=== PATIENT | male | born 1935 | race Caucasian/White ===

== ENCOUNTER 2018-01-05 13:00 | Observation (INO) ==
[2018-01-05] MEDS ORDERED: 0.9 % Sodium Chloride 1,000 ML IVC ONE (13:06)
--- NOTE | 2018-01-05 13:11 | Emergency Department Note ---
Disposition Clinical Impression: Altered mental status Qualifiers: Altered mental status type: unspecified Qualified Code(s): R41.82 - Altered mental status, unspecified UTI (urinary tract infection) Qualifiers: Urinary tract infection type: site unspecified Hematuria presence: without hematuria Qualified Code(s): N39.0 - Urinary tract infection, site not specified Disposition: Admitted As Inpatient Condition: Fair Referrals: NONE,PCP [Primary Care Provider] - Forms: ED Satisfaction Letter Time of Disposition: 15:49 Altered Mental Status HPI - General Chief Complaint: ED Upper Respiratory Infection Stated Complaint: cough, flu-like symptoms Time Seen by Provider: 01/05/18 13:02 Source: EMS Mode of arrival: EMS Limitations: altered mental status Nursing Notes Reviewed: Yes Vital Signs Reviewed: Yes - History of Present Illness HPI Narrative: Patient is a 82-year-old male with past medical history of dementia, previous stroke, previous pneumonia, decreased ambulation status, decreased speech. He presents today via EMS from [facility] due to altered mental status , cough, fever, concern for flu. EMS states that the patient's roommate recently had the flu. The patient himself has had a productive cough. Family states that he is usually alert and does try to talk but cannot carry on any meaningful conversation. However, this morning, he was not able to be easily aroused, is not speaking at all. prison also states that he is not making any effort to move. The patient himself on arrival is not answering any questions, we will not perform any commands. He is withdrawing to pain, is resisting when I try to open his eyes. He also does have rhonchorous cough throughout the exam. Patient's family is at bedside and states that he is DNR CCA. - Related Data Home Medications Medication Instructions Recorded Confirmed Atorvastatin Calcium [Lipitor] 80 mg PO HS 11/22/15 01/05/18 Isosorbide DInitrate [Isosorbide 20 mg PO TID 11/22/15 01/05/18 Dinitrate] Carvedilol [Coreg] 6.25 mg PO BID 11/29/15 01/05/18 Docusate [Colace] 100 mg PO BID 01/05/18 01/05/18 Ketoconazole Shampoo [Nizoral 1 appl TP MOTHSA 01/05/18 01/05/18 Shampoo] LevETIRAcetam [Keppra] 500 mg PO BID 01/05/18 01/05/18 Potassium Chloride [K-Tab ER] 20 meq PO DAILY 01/05/18 01/05/18 Sennosides [Senna] 8.6 mg PO BID 01/05/18 01/05/18 Triamcinolone Acetonide 1 appl TP BID 01/05/18 01/05/18 Allergies Allergy/AdvReac Type Severity Reaction Status Date / Time No Known Allergies Allergy Verified 11/07/15 15:30 All systems ED: reviewed and negative except as stated. Limitations: ROS unobtainable due to patients medical condition Constitutional: Reports: fever Respiratory: Reports: cough Neurological: Reports: other (AMS) Past Medical History - Past Medical History Attestation: Yes The following information was validated with the patient. Source: patient Medical history: Reports: atrial fibrillation, CVA, DVT, other Surgical history: Reports: coronary bypass (CABG) Psychiatric history: Reports: no psych history - Social History Smoking Status: Former smoker Smokeless Tobacco Status: No Alcohol use: Reports: unknown Drug use: Reports: none Physical Exam Physical exam shows the patient is lying on his back, eyes closed, mouth open, will not open his eyes but resists when I try to open them, will perform any commands. Otherwise, lungs are rhonchorous bilaterally lower lobes, abdomen soft and appears to be nontender. He does have pitting edema of the bilateral lower extremities but no signs of cellulitis. - General Limitations: altered mental status General appearance: lethargic - Head Head exam: atraumatic, normocephalic, normal inspection - Eye Eye exam: Present: normal appearance, PERRL, EOMI. Absent: miosis, mydriasis - ENT ENT exam: normal exam, normal oropharynx, mucous membranes moist - Neck Neck exam: Present: normal inspection, trachea midline - Chest Chest inspection: Present: normal inspection, symmetric chest wall rise - Respiratory Respiratory exam: Present: other (rhonchi bilateral LL) - Cardiovascular Cardiovascular exam: Present: regular rate, normal rhythm, normal heart sounds - Abdominal Exam Abdominal exam: Present: soft, Non-Tender. Absent: tenderness, distention, guarding, rebound, rigidity - Extremities Exam Extremities exam: Present: normal inspection, full ROM, pedal edema (pitting edema of bilateral LL) - Neurological Exam Neurological exam: Present: other (lying on bed, will not answer questions or follow commands; resists opening eyes.) - Psychiatric Psychiatric exam: Present: other - Skin Skin exam: Present: warm, dry, intact, normal color. Absent: rash Course Course Narrative: Vitals are all currently within normal limits. Patient is on 2 L nasal cannula oxygen. Family stated to us that the patient is not usually on oxygen and that this must have been started within the past 1-2 days. Physical exam shows the patient is lying on his back, eyes closed, mouth open, will not open his eyes but resists when I try to open them, will perform any commands. Otherwise, lungs are rhonchorous bilaterally lower lobes, abdomen soft and appears to be nontender. He does have pitting edema of the bilateral lower extremities but no signs of cellulitis. Will perform altered mental status including CT of the head, EKG, chest x-ray, basic blood work, troponin, urinalysis. Concern for pneumonia versus flu. 15:44 flu negative. Labs show UTI. CT of the head shows no acute abnormalities. There is evidence of an old infarct the family is aware of. Chest x-ray negative for any acute cardiopulmonary process. Creatinine within normal limits. No major electrolyte abnormalities. We will admit the patient for altered mental status and UTI. Vital Signs Temperature 98.3 F 01/05/18 13:04 Pulse Rate 57 01/05/18 13:04 Respiratory Rate 17 01/05/18 13:04 Blood Pressure 116/62 01/05/18 13:04 O2 Sat by Pulse Oximetry 100 01/05/18 13:04 Temperature 98.3 F 01/05/18 13:04 Pulse Rate 57 01/05/18 13:04 Respiratory Rate 17 01/05/18 13:04 Blood Pressure 116/62 01/05/18 13:04 O2 Sat by Pulse Oximetry 100 01/05/18 13:04 Oxygen Delivery Oxygen Delivery Room Air Altered Mental Status - MDM Narrative Medical decision making narrative: Vitals are all currently within normal limits. Patient is on 2 L nasal cannula oxygen. Family stated to us that the patient is not usually on oxygen and that this must have been started within the past 1-2 days. Physical exam shows the patient is lying on his back, eyes closed, mouth open, will not open his eyes but resists when I try to open them, will perform any commands. Otherwise, lungs are rhonchorous bilaterally lower lobes, abdomen soft and appears to be nontender. He does have pitting edema of the bilateral lower extremities but no signs of cellulitis. Will perform altered mental status including CT of the head, EKG, chest x-ray, basic blood work, troponin, urinalysis. Concern for pneumonia versus flu. 15:44 flu negative. Labs show UTI. CT of the head shows no acute abnormalities. There is evidence of an old infarct the family is aware of. Chest x-ray negative for any acute cardiopulmonary process. Creatinine within normal limits. No major electrolyte abnormalities. We will admit the patient for altered mental status and UTI. PATIENT IS DNRCCA - Medical Records Medical records reviewed: Yes I reviewed the patient's medical records. - Lab Data Lab results reviewed: Yes I reviewed the patient's lab results. Result diagrams: 01/05/18 13:32 01/05/18 13:32 Lab Results 01/05/18 01/05/18 01/05/18 Range/Units 13:32 13:32 13:32 WBC 7.0 (4.3-11.1) K/mcL RBC 4.30 (4.19-5.50) M/mcL Hgb 11.3 L (12.9-16.9) g/dL Hct 37.2 L (37.5-50.1) % MCV 86.5 (83.0-100.0) fL MCH 26.3 L (28.0-33.3) pg MCHC 30.4 L (31.6-35.5) g/dL RDW 14.6 H (11.5-14.5) % Plt Count 157 (140-400) K/mcL MPV 10.5 (9.4-12.4) fL Immature Gran % 0.3 (0-4) % Seg Neutrophils % 59.1 % Lymphocytes % 19.7 % Monocytes % 16.5 % Eosinophils % 4.0 % Basophils % 0.4 % Neutrophils # 4.1 (1.6-8.9) K/mcL Lymphocytes # 1.4 (0.6-4.6) K/mcL Monocytes # 1.2 (0.0-1.3) K/mcL Eosinophils # 0.3 (0.0-0.6) K/mcL Basophils # 0.0 (0.0-0.2) K/mcL PT 12.3 H (9.4-12.1) Seconds INR 1.1 APTT 29.6 (26.0-36.0) Seconds Sodium 138 (136-145) mEq/L Potassium 4.6 (3.5-5.1) mEq/L Chloride 104 (98-107) mEq/L Carbon Dioxide 30 H (23-29) mEq/L BUN 25 H (8-23) mg/dL Creatinine 1.30 (0.70-1.30) mg/dL Est GFR ( Amer) > 60 (> 60) Est GFR (Non-Af Amer) 53 L (> 60) BUN/Creatinine Ratio 19 (6-26) Glucose 93 (70-105) mg/dL Calculated Osmolality 290 (280-300) Calcium 8.5 L (8.6-10.3) mg/dL Total Bilirubin 0.5 (0.3-1.0) mg/dL Direct Bilirubin 0.1 (0.0-0.2) mg/dL Indirect Bilirubin 0.4 (0.0-1.2) mg/dL AST 21 (13-39) Units/L ALT 19 (7-52) Units/L Alkaline Phosphatase 103 (34-104) Units/L Troponin I (< 0.04) ng/mL Serum Total Protein 6.7 (6.4-8.9) g/dL Albumin 3.4 L (3.5-5.7) g/dL Globulin 3.3 (2.4-3.5) g/dL Albumin/Globulin Ratio 1.0 L (1.1-2.2) TSH 3.150 (0.340-5.600) mcIU/mL Urine Color (Yellow) Urine Clarity (Clear) Urine pH (5.0-8.0) pH Units Ur Specific Parker (1.010-1.025) Urine Protein (Neg-Trace) mg/dL Urine Glucose (UA) (Normal) mg/dL Urine Ketones (Negative) mg/dL Urine Blood (Negative) Urine Nitrite (Negative) Urine Bilirubin (Negative) Urine Urobilinogen (Normal) mg/dL Ur Leukocyte Esterase (Negative) Urine Microscopic RBC (0-3) per hpf Urine Microscopic WBC (0-3) per hpf Ur Squamous Epith Cells (None-Few) per lpf Urine Bacteria (None-Few) per hpf Hyaline Casts (None-Few) per lpf Ur Culture Indicated? (NO) Salicylates (15.0-30.0) mg/dL Acetaminophen (10-30) mcg/mL Specimen Rejected 01/05/18 01/05/18 01/05/18 Range/Units 13:32 13:32 13:32 WBC (4.3-11.1) K/mcL RBC (4.19-5.50) M/mcL Hgb (12.9-16.9) g/dL Hct (37.5-50.1) % MCV (83.0-100.0) fL MCH (28.0-33.3) pg MCHC (31.6-35.5) g/dL RDW (11.5-14.5) % Plt Count (140-400) K/mcL MPV (9.4-12.4) fL Immature Gran % (0-4) % Seg Neutrophils % % Lymphocytes % % Monocytes % % Eosinophils % % Basophils % % Neutrophils # (1.6-8.9) K/mcL Lymphocytes # (0.6-4.6) K/mcL Monocytes # (0.0-1.3) K/mcL Eosinophils # (0.0-0.6) K/mcL Basophils # (0.0-0.2) K/mcL PT (9.4-12.1) Seconds INR APTT (26.0-36.0) Seconds Sodium (136-145) mEq/L Potassium (3.5-5.1) mEq/L Chloride (98-107) mEq/L Carbon Dioxide (23-29) mEq/L BUN (8-23) mg/dL Creatinine (0.70-1.30) mg/dL Est GFR ( Amer) (> 60) Est GFR (Non-Af Amer) (> 60) BUN/Creatinine Ratio (6-26) Glucose (70-105) mg/dL Calculated Osmolality (280-300) Calcium (8.6-10.3) mg/dL Total Bilirubin (0.3-1.0) mg/dL Direct Bilirubin (0.0-0.2) mg/dL Indirect Bilirubin (0.0-1.2) mg/dL AST (13-39) Units/L ALT (7-52) Units/L Alkaline Phosphatase (34-104) Units/L Troponin I < 0.03 (< 0.04) ng/mL Serum Total Protein (6.4-8.9) g/dL Albumin (3.5-5.7) g/dL Globulin (2.4-3.5) g/dL Albumin/Globulin Ratio (1.1-2.2) TSH (0.340-5.600) mcIU/mL Urine Color (Yellow) Urine Clarity (Clear) Urine pH (5.0-8.0) pH Units Ur Specific Parker (1.010-1.025) Urine Protein (Neg-Trace) mg/dL Urine Glucose (UA) (Normal) mg/dL Urine Ketones (Negative) mg/dL Urine Blood (Negative) Urine Nitrite (Negative) Urine Bilirubin (Negative) Urine Urobilinogen (Normal) mg/dL Ur Leukocyte Esterase (Negative) Urine Microscopic RBC (0-3) per hpf Urine Microscopic WBC (0-3) per hpf Ur Squamous Epith Cells (None-Few) per lpf Urine Bacteria (None-Few) per hpf Hyaline Casts (None-Few) per lpf Ur Culture Indicated? (NO) Salicylates < 5.0 L (15.0-30.0) mg/dL Acetaminophen 1.0 L (10-30) mcg/mL Specimen Rejected Hemolyzed 01/05/18 Range/Units 14:37 WBC (4.3-11.1) K/mcL RBC (4.19-5.50) M/mcL Hgb (12.9-16.9) g/dL Hct (37.5-50.1) % MCV (83.0-100.0) fL MCH (28.0-33.3) pg MCHC (31.6-35.5) g/dL RDW (11.5-14.5) % Plt Count (140-400) K/mcL MPV (9.4-12.4) fL Immature Gran % (0-4) % Seg Neutrophils % % Lymphocytes % % Monocytes % % Eosinophils % % Basophils % % Neutrophils # (1.6-8.9) K/mcL Lymphocytes # (0.6-4.6) K/mcL Monocytes # (0.0-1.3) K/mcL Eosinophils # (0.0-0.6) K/mcL Basophils # (0.0-0.2) K/mcL PT (9.4-12.1) Seconds INR APTT (26.0-36.0) Seconds Sodium (136-145) mEq/L Potassium (3.5-5.1) mEq/L Chloride (98-107) mEq/L Carbon Dioxide (23-29) mEq/L BUN (8-23) mg/dL Creatinine (0.70-1.30) mg/dL Est GFR ( Amer) (> 60) Est GFR (Non-Af Amer) (> 60) BUN/Creatinine Ratio (6-26) Glucose (70-105) mg/dL Calculated Osmolality (280-300) Calcium (8.6-10.3) mg/dL Total Bilirubin (0.3-1.0) mg/dL Direct Bilirubin (0.0-0.2) mg/dL Indirect Bilirubin (0.0-1.2) mg/dL AST (13-39) Units/L ALT (7-52) Units/L Alkaline Phosphatase (34-104) Units/L Troponin I (< 0.04) ng/mL Serum Total Protein (6.4-8.9) g/dL Albumin (3.5-5.7) g/dL Globulin (2.4-3.5) g/dL Albumin/Globulin Ratio (1.1-2.2) TSH (0.340-5.600) mcIU/mL Urine Color Yellow (Yellow) Urine Clarity Cloudy A (Clear) Urine pH 6.0 (5.0-8.0) pH Units Ur Specific Parker 1.023 (1.010-1.025) Urine Protein 30 H (Neg-Trace) mg/dL Urine Glucose (UA) Normal (Normal) mg/dL Urine Ketones Negative (Negative) mg/dL Urine Blood Small H (Negative) Urine Nitrite Positive A (Negative) Urine Bilirubin Negative (Negative) Urine Urobilinogen Normal (Normal) mg/dL Ur Leukocyte Esterase Large H (Negative) Urine Microscopic RBC 0-3 (0-3) per hpf Urine Microscopic WBC TNTC H (0-3) per hpf Ur Squamous Epith Cells Few (None-Few) per lpf Urine Bacteria Many H (None-Few) per hpf Hyaline Casts Few (None-Few) per lpf Ur Culture Indicated? YES A (NO) Salicylates (15.0-30.0) mg/dL Acetaminophen (10-30) mcg/mL Specimen Rejected - Radiology Data Radiology results reviewed: Yes I reviewed the patient's radiology results. Chest X-Ray 01/05/18 13:04 IMPRESSION: Stable cardiomegaly. Low lung volumes. Atelectasis at the right lung base. Mild pulmonary vascular congestion. Trace bilateral pleural effusions. D/ / Qamar Posey MD / Qamar Posey MD Interpreting Provider: Qamar Posey MD Head CT 01/05/18 13:05 IMPRESSION: 1. Diffuse cerebral atrophy with chronic small vessel ischemic disease. 2. Low attenuation within the left frontal lobe. This may be related to prior infarct or trauma. However, a neoplastic process cannot totally be excluded. I would recommend MRI of the brain for further evaluation. D/ / Nigel Bean MD / Nigel Bean MD Interpreting Provider: Nigel Bean MD - EKG Data EKG attestation: Yes I reviewed and interpreted this EKG. EKG results narrative: 01/05/2018 at 13:58. Sinus bradycardia. Rate 56. SD to 10. QRS 148. No acute ST elevation or depression. Right bundle branch block evident. Normal axis. TPA Checklist - LKW: 3-4.5 hrs Add. Warnings/Precautions Patient/family understanding: The patient/family members have been counseled and understood the risk, benefit , and alternatives of treatment.
[2018-01-05 13:46] LABS: Basophils % 0.4 %; Eosinophils # 0.3 K/mcL (0.0-0.6); Hematocrit 37.2 % (37.5-50.1); Hemoglobin 11.3 g/dL (12.9-16.9); Immature Granulocytes % 0.3 % (0-4); Lymphocytes # 1.4 K/mcL (0.6-4.6); Lymphocytes % 19.7 %; Mean Corpuscular HGB Conc 30.4 g/dL (31.6-35.5); Mean Corpuscular Hemoglobin 26.3 pg (28.0-33.3); Mean Corpuscular Volume 86.5 fL (83.0-100.0); Mean Platelet Volume 10.5 fL (9.4-12.4); Monocytes # 1.2 K/mcL (0.0-1.3); Monocytes % 16.5 %; Neutrophils # 4.1 K/mcL (1.6-8.9); Platelet Count 157 K/mcL (140-400); Red Cell Distribution Width 14.6 % (11.5-14.5); Segmented Neutrophils % 59.1 %
[2018-01-05 13:51] LABS: INR 1.1; Prothrombin Time 12.3 Seconds (9.4-12.1)
[2018-01-05 13:54] LABS: Activated Partial Thrombo Time 29.6 Seconds (26.0-36.0)
[2018-01-05 14:05] LABS: Salicylate < 5.0 mg/dL (15.0-30.0)
[2018-01-05 14:30] LABS: Alanine Aminotransferase 19 Units/L (7-52); Albumin 3.4 g/dL (3.5-5.7); Alkaline Phosphatase 103 Units/L (34-104); Aspartate Amino Transferase 21 Units/L (13-39); BUN/Creatinine Ratio 19 (6-26); Bilirubin,Direct 0.1 mg/dL (0.0-0.2); Bilirubin,Indirect 0.4 mg/dL (0.0-1.2); Bilirubin,Total 0.5 mg/dL (0.3-1.0); Blood Urea Nitrogen 25 mg/dL (8-23); Calcium 8.5 mg/dL (8.6-10.3); Carbon Dioxide 30 mEq/L (23-29); Chloride 104 mEq/L (98-107); Globulin 3.3 g/dL (2.4-3.5); Glucose 93 mg/dL (70-105); Osmolality,Calculated 290 (280-300); Potassium 4.6 mEq/L (3.5-5.1); Sodium 138 mEq/L (136-145); Total Protein 6.7 g/dL (6.4-8.9); eGFR For African Americans > 60 (> 60); eGFR For Non-African Americans 53 (> 60)
[2018-01-05 14:47] LABS: Bilirubin,Urine Negative (Negative); Blood,Urine Small (Negative); Clarity,Urine Cloudy (Clear); Color,Urine Yellow (Yellow); Glucose,Urine (UA) Normal (Normal); Ketones,Urine Negative (Negative); Leukocyte Esterase,Urine Large (Negative); Nitrite,Urine Positive (Negative); Protein,Urine 30 mg/dL (Neg-Trace); Specific Gravity,Urine 1.023 (1.010-1.025); Urobilinogen,Urine Normal (Normal)
[2018-01-05 14:49] LABS: RBC,Urine 0-3 per hpf (0-3); WBC,Urine TNTC per hpf (0-3)
--- NOTE | 2018-01-05 14:49 | Emergency Department Note ---
START Narrative - START START: I examined this patient and my medical decision-making was reviewed with the Resident Physician. I agree with the documented findings, disposition and treatment plan as described except to the extent set forth below. 82-year-old male presented to the ER for altered mental status. She was sent from a local jail. He is a DNR comfort care arrest. Patient was sent to the ER for being somnolent and possible flulike illness. Upon arrival in examination, the patient is very lethargic and does not follow many commands. He is coughing on his own. CT of the head does not show any acute findings. Chest x-ray is stable. Patient will need to be admitted for further workup of this decline in mental status. Unclear as the cause of the patient's altered mental status at this time. Patient does not seem to be changing much here in the ER. Still awaiting his urinalysis is this could be the cause of this. critical care time of 35 min spent in management of AMS and possible infectious etiology
[2018-01-05 14:59] LABS: Hyaline Casts,Urine Few per lpf (None-Few)
[2018-01-05 15:00] LABS: Bacteria,Urine Many per hpf (None-Few); Squamous Epithelial Cell,Urine Few per lpf (None-Few)
[2018-01-05] MEDS ORDERED: cefTRIAXone 2,000 MG in Water for inj. (sterile) 20 ML 20 ML IVP ONE (16:00)
--- NOTE | 2018-01-05 18:44 | Internal Med History&Physical ---
Date of Encounter: 01/05/18 Time of Encounter: 18:00 Assessment and Plan (1) UTI (urinary tract infection) Current visit: No Status: Acute -Will continue IV ceftriaxone started in the ER; cultures pending Qualifiers: Urinary tract infection type: acute cystitis Hematuria presence: without hematuria Qualified Code(s): N30.00 - Acute cystitis without hematuria (2) Altered mental status Current visit: Yes Status: Acute -Patient with underlining dementia but suspect secondary to above Qualifiers: Altered mental status type: unspecified Qualified Code(s): R41.82 - Altered mental status, unspecified (3) CAD (coronary artery disease) Current visit: No Status: Chronic -Continue home medications Qualifiers: Coronary Disease-Associated Artery/Lesion type: unspecified vessel or lesion type [place] vs. transplanted heart: [place] heart Associated angina: angina presence unspecified Qualified Code(s): I25.10 - Atherosclerotic heart disease of [place] coronary artery without angina pectoris (4) HTN (hypertension) Current visit: No Status: Chronic -Continue home medications Qualifiers: Hypertension type: essential hypertension Qualified Code(s): I10 - Essential (primary) hypertension (5) Dementia Current visit: Yes Status: Acute -Continue home medications Qualifiers: Qualified Code(s): F03.90 - Unspecified dementia without behavioral disturbance (6) DVT prophylaxis Current visit: Yes Status: Acute -SCDs Internal Medicine - H&P: HPI Chief complaint: Confusion Admitted From: Long-term Nursing Facility Plans for Post Hospital Care: Transfer Jail Care History of present illness: Patient is an 82-year-old male with past medical history significant for coronary arterial disease, hyperlipidemia and dementia who presents to the ER on 01/05/18 due to confusion. Family who is present at bedside reports that the patient has had decreased by mouth intake the last 2 weeks and now has become more confused. Apparently patient was being worked up for dysphagia and was to have a barium swallow per family. Patient was sent by [facility] to the ER for further evaluation. In the ER patient was found to have pyuria; no acute findings on CT of the head. Patient will be admitted to the medical surgical floor for acute cystitis with hematuria. Past Med Surg Social Fam HX - Past Medical History Medical history: atrial fibrillation, CVA, DVT, other Psychiatric history: no psych history - Past Surgical History Surgical History: coronary bypass (CABG) - Social History Smoking Status: Former smoker Smokeless Tobacco Status: No Alcohol use: unknown Drug use: none - Family History Mother Living Status: Internal Medicine - H&P: Meds Atorvastatin Calcium [Lipitor] 80 mg PO HS 11/22/15 [History] Isosorbide DInitrate [Isosorbide Dinitrate] 20 mg PO TID 11/22/15 [History] Carvedilol [Coreg] 6.25 mg PO BID 11/29/15 [History] Docusate [Colace] 100 mg PO BID 01/05/18 [History] Ketoconazole Shampoo [Nizoral Shampoo] 1 appl TP MOTHSA 01/05/18 [History] LevETIRAcetam [Keppra] 500 mg PO BID 01/05/18 [History] Potassium Chloride [K-Tab ER] 20 meq PO DAILY 01/05/18 [History] Sennosides [Senna] 8.6 mg PO BID 01/05/18 [History] Triamcinolone Acetonide 1 appl TP BID 01/05/18 [History] 3 Allergy/AdvReac Type Severity Reaction Status Date / Time No Known Allergies Allergy Verified 11/07/15 15:30 ROS unobtainable: due to mental status All Systems PM: A 10-system review of systems was performed and is negative for pertinent findings except as documented above in the HPI. - Constitutional Vitals: Temp Pulse Resp BP Pulse Ox 98.3 F 64 17 128/79 97 01/05/18 13:04 01/05/18 17:06 01/05/18 17:06 01/05/18 17:06 01/05/18 17:06 General appearance: Present: A&O X 2, pleasant, no acute distress - Respiratory Respiratory exam: Present: CTAB. Absent: accessory muscle use, rales, rhonchi, wheezes - Cardiovascular Cardiovascular exam: Present: RRR, +S1, +S2. Absent: diastolic murmur, gallop, rubs, systolic murmur - GI/Abdominal GI/Abdominal exam: Present: normal bowel sounds, soft, no peritoneal signs. Absent: distended, tenderness - Extremities Exam Extremities exam: Absent: pedal edema - Neurological Exam Neurological exam: Present: altered - Psychiatric Psychiatric exam: Present: normal affect, normal mood - Skin Skin exam: Present: pallor Internal Med - H&P Results - Labs CBC & Chem 7: 01/05/18 13:32 01/05/18 13:32
[2018-01-05] MEDS ORDERED: Naloxone 0.4 MG/ML INJ IVP PRN (18:51)
[2018-01-05] MEDS ORDERED: levETIRAcetam 250 MG TABLET PO SCH (21:00)
[2018-01-05] MEDS: Sennosides 8.6 MG TABLET PO SCH (21:04)
[2018-01-06 05:07] LABS: Basophils % 0.5 %; Eosinophils # 0.4 K/mcL (0.0-0.6); Eosinophils % 6.6 %; Hematocrit 33.1 % (37.5-50.1); Hemoglobin 10.2 g/dL (12.9-16.9); Immature Granulocytes % 0.2 % (0-4); Lymphocytes # 1.3 K/mcL (0.6-4.6); Lymphocytes % 20.5 %; Mean Corpuscular HGB Conc 30.8 g/dL (31.6-35.5); Mean Corpuscular Hemoglobin 26.3 pg (28.0-33.3); Mean Corpuscular Volume 85.3 fL (83.0-100.0); Mean Platelet Volume 11.2 fL (9.4-12.4); Monocytes # 0.9 K/mcL (0.0-1.3); Monocytes % 14.8 %; Neutrophils # 3.6 K/mcL (1.6-8.9); Nucleated Red Blood Cells 0.3 /100 WBC (0); Platelet Count 148 K/mcL (140-400); Red Blood Count 3.88 M/mcL (4.19-5.50); Red Cell Distribution Width 14.4 % (11.5-14.5); Segmented Neutrophils % 57.4 %
[2018-01-06 05:33] LABS: BUN/Creatinine Ratio 21 (6-26); Blood Urea Nitrogen 21 mg/dL (8-23); Calcium 8.1 mg/dL (8.6-10.3); Carbon Dioxide 30 mEq/L (23-29); Chloride 106 mEq/L (98-107); Glucose 79 mg/dL (70-105); Osmolality,Calculated 290 (280-300); Potassium 3.9 mEq/L (3.5-5.1); Sodium 139 mEq/L (136-145); eGFR For African Americans > 60 (> 60); eGFR For Non-African Americans > 60 (> 60)
--- NOTE | 2018-01-06 06:49 | Electrocardiograph Report ---
[facility] Test Date: 2018-01-05 Pat Name: Prem Villarreal Department: [id number] Room: 3B13 Gender: M Cement Mixer: : [id number] Requested By: Meng Wing Order Number: [id number] Reading MD: Giovani Quesada MD Measurements Intervals Bennett Rate: 56 P: 48 WY: 210 QRS: 6 QRSD: 148 T: 16 QT: 449 QTc: 439 Interpretive Statements SINUS BRADYCARDIA WITH FIRST DEGREE AV BLOCK RIGHT BUNDLE BRANCH BLOCK Electronically Signed On 01-06-2018 6:48:08 EST by Giovani Quesada MD
[2018-01-06] MEDS: Potassium Chloride Elixir 20 MEQ/15 ML UDC PO SCH (10:23)
[2018-01-06] MEDS: Sennosides 8.6 MG TABLET PO SCH ×2 (10:23→22:18)
--- NOTE | 2018-01-06 12:06 | Internal Med Progress Note ---
Date of Encounter: 01/06/18 Time of Encounter: 12:05 - Assessment and plan (1) Metabolic encephalopathy Current Visit: Yes Status: Acute Assessment and plan: Resolved and back to baseline Patient found to have UTI and history of dementia Patient is alert and following commands on assessment He knows his name, date of , and intermittentlyis a hospital. He is not oriented to time but I feel this is his baseline (2) Dementia Current Visit: Yes Status: Acute Assessment and plan: Patient with diagnosis of dementia Continue home medications Qualifiers: Dementia type: unspecified type Qualified Code(s): F03.90 - Unspecified dementia without behavioral disturbance (3) UTI (urinary tract infection) Current Visit: Yes Status: Acute Assessment and plan: TIA on urinalysis Currently on Rocephin Awaiting urine culture results for sensitivity Vital signs are stable White count is 6.3 Qualifiers: Urinary tract infection type: site unspecified Hematuria presence: without hematuria Qualified Code(s): N39.0 - Urinary tract infection, site not specified (4) DVT prophylaxis Current Visit: Yes Status: Acute Assessment and plan: SCDs (5) HTN (hypertension) Current Visit: No Status: Chronic Assessment and plan: Continue home meds Blood pressure is stable Qualifiers: Hypertension type: essential hypertension Qualified Code(s): I10 - Essential (primary) hypertension - Subjective Interval history: Patient is lying in bed in no distress, he did answer my questions. He states he is feeling okay. Denies any chest pain or shortness of breath or other complaints. - Constitutional Vitals: Temp Pulse Resp BP Pulse Ox 98.1 F 62 16 104/54 92 01/06/18 11:24 01/06/18 11:24 01/06/18 11:24 01/06/18 11:24 01/06/18 11:24 General appearance: Present: cooperative, A&O X 2, pleasant, no acute distress - Head Head exam: Present: atraumatic, normocephalic - Eye Eye exam: Present: PERRL, conjuntiva pink, sclera anicteric Pupils: Present: PERRL Additional comments: Mucous membranes are rather dry, his tongue is dry. He is not oriented to the year and intermittently to this place - Neck Neck exam general surgery: Present: supple, trachea midline. Absent: lymphadenopathy - Respiratory Respiratory exam: Present: decreased breath sounds, CTAB, wheezes. Absent: accessory muscle use, rales, respiratory distress, rhonchi - Cardiovascular Cardiovascular exam: Present: RRR, +S1, +S2. Absent: diastolic murmur, gallop, rubs, systolic murmur - GI/Abdominal GI/Abdominal exam: Present: normal bowel sounds, soft, no peritoneal signs. Absent: distended, tenderness - Extremities Exam Extremities exam: Present: pedal edema, warm, radial pulses palpable and symmetrical. Absent: calf tenderness, cyanotic - Neurological Exam Neurological exam: Present: CN II-XII intact, oriented X3, no focal deficits. Absent: pronater drift, facial droop, speech deficit - Skin Skin exam: Present: dry, intact, warm Additional comments: Right heel is mushy and red Internal Medicine: Result - Labs CBC & Chem 7: 01/06/18 03:32 01/06/18 03:32 Labs: Short CBC 01/06/18 Range/Units 03:32 WBC 6.3 (4.3-11.1) K/mcL Hgb 10.2 L (12.9-16.9) g/dL Hct 33.1 L (37.5-50.1) % Plt Count 148 (140-400) K/mcL Neutrophils # 3.6 (1.6-8.9) K/mcL BMP 01/06/18 03:32 Sodium 139 Potassium 3.9 Chloride 106 Carbon Dioxide 30 H BUN 21 Creatinine 1.00 Glucose 79 Calcium 8.1 L - ABG Interpretation ABG results: PT/INR, D-dimer PT 12.3 Seconds (9.4-12.1) H 01/05/18 13:32 Consult Discharge Plan - Plan Referrals: NONE,PCP [Primary Care Provider] -
[2018-01-06] MEDS ORDERED: cefTRIAXone 2,000 MG in Water for inj. (sterile) 20 ML IVP SCH (19:00)
[2018-01-07 04:13] LABS: Basophils % 0.4 %; Eosinophils # 0.4 K/mcL (0.0-0.6); Eosinophils % 5.5 %; Hematocrit 32.4 % (37.5-50.1); Hemoglobin 10.1 g/dL (12.9-16.9); Immature Granulocytes % 0.3 % (0-4); Lymphocytes # 1.5 K/mcL (0.6-4.6); Lymphocytes % 19.8 %; Mean Corpuscular HGB Conc 31.2 g/dL (31.6-35.5); Mean Corpuscular Hemoglobin 26.2 pg (28.0-33.3); Mean Corpuscular Volume 84.2 fL (83.0-100.0); Mean Platelet Volume 11.2 fL (9.4-12.4); Monocytes % 13.7 %; Neutrophils # 4.6 K/mcL (1.6-8.9); Platelet Count 166 K/mcL (140-400); Red Blood Count 3.85 M/mcL (4.19-5.50); Red Cell Distribution Width 14.3 % (11.5-14.5); Segmented Neutrophils % 60.3 %
[2018-01-07 04:37] LABS: BUN/Creatinine Ratio 20 (6-26); Blood Urea Nitrogen 21 mg/dL (8-23); Calcium 8.1 mg/dL (8.6-10.3); Carbon Dioxide 29 mEq/L (23-29); Chloride 105 mEq/L (98-107); Glucose 84 mg/dL (70-105); Osmolality,Calculated 288 (280-300); Potassium 4.1 mEq/L (3.5-5.1); Sodium 138 mEq/L (136-145); eGFR For African Americans > 60 (> 60); eGFR For Non-African Americans > 60 (> 60)
[2018-01-07 06:19] LABS: Acinetobacter baumannii by PCR Not Detected (Not Detect); Candida albicans by PCR Not Detected (Not Detect); Candida glabrata by PCR Not Detected (Not Detect); Candida krusei by PCR Not Detected (Not Detect); Candida parapsilosis by PCR Not Detected (Not Detect); Candida tropicalis by PCR Not Detected (Not Detect); Enterococcus by PCR Not Detected (Not Detect); Escherichia coli by PCR Not Detected (Not Detect); Klebsiella oxytoca by PCR Not Detected (Not Detect); Klebsiella pneumoniae by PCR Not Detected (Not Detect); Pseudomonas aeruginosa by PCR Not Detected (Not Detect); Serratia marcescens by PCR Not Detected (Not Detect); Staphylococcus aureus by PCR Not Detected (Not Detect); Streptococcus agalactiae(B)PCR Not Detected (Not Detect); Streptococcus by PCR Not Detected (Not Detect); Streptococcus pneumoniae PCR Not Detected (Not Detect); Streptococcus pyogenes (A) PCR Not Detected (Not Detect); blaKPC Carbapenem-Resist Gene Not Detected (Not Detect); mecA Methicillin-Resist Gene Not Detected (Not Detect); vanA/B Vancomycin-Resist Genes Not Detected (Not Detect)
[2018-01-07] MEDS: Sennosides 8.6 MG TABLET PO SCH ×2 (10:46→20:15)
[2018-01-07] MEDS: Potassium Chloride Elixir 20 MEQ/15 ML UDC PO SCH (10:46)
--- NOTE | 2018-01-07 11:24 | Infectious Disease Consult ---
Date of Encounter: 01/07/18 Time of Encounter: 11:22 Assessment and Plan (1) Bacteremia Status: Acute Assessment and plan: Causative organism unclear. Blood cultures drawn in the ER are positive 1/2 sets for GPC. PCR is negative, so unlikely Staph or Strep. Contaminant vs. true infection. Await cultures to finalize. Repeat blood cultures x 2 sets. (2) UTI (urinary tract infection) Status: Acute Assessment and plan: Causative organism Pseudomonas aeruginosa, resistant to fluoroquinolones. Likely secondary to chronic urinary incontinence. Likely the source of the patient's AMS, which is improved based on documentation. Discontinue hickman when able. Continue Cefepime 2 grams IV Q12H. Duration of treatment depends on the clinical picture. Monitor renal function and dose-adjust antibiotics. Qualifiers: Urinary tract infection type: site unspecified Hematuria presence: without hematuria Qualified Code(s): N39.0 - Urinary tract infection, site not specified (3) Cough Status: Acute Assessment and plan: Likely viral. Chest x-ray shows no acute infiltrate. Flu antigen negative, but the patient does have history of exposure to the flu with cough, fever, and URI symptoms. Check RIP. (4) Altered mental status Status: Acute Assessment and plan: Likely secondary to UTI. CT of the head negative for acute abnormality, but did show low attenuation in the left frontal lobe, likely secondary to previous infarct vs. neoplasm. Appears improved based on other provider's documentation. Qualifiers: Altered mental status type: unspecified Qualified Code(s): R41.82 - Altered mental status, unspecified (5) CVA (cerebrovascular accident due to intracerebral hemorrhage) Status: Chronic Qualifiers: Intracerebral hemorrhage etiology: nontraumatic Cerebral hemorrhage location: unspecified cerebral location Qualified Code(s): I61.9 - Nontraumatic intracerebral hemorrhage, unspecified (6) Atrial fibrillation Status: Chronic Assessment and plan: Rate controlled. Management per the primary team. Qualifiers: Atrial fibrillation type: chronic Qualified Code(s): I48.2 - Chronic atrial fibrillation (7) Dementia Status: Chronic Qualifiers: Dementia type: unspecified type Dementia behavioral disturbance: without behavioral disturbance Qualified Code(s): F03.90 - Unspecified dementia without behavioral disturbance Infectious Disease HPI - Data of Consult Patient: new to practice Consult date: 01/07/18 Requesting Physician: Shaylee Godinze CNP Primary Care Provider: PCP NONE - Consult Narrative Reason for consult: Bacteremia History of present illness: Mr. Villarreal is a 82 year old male with a past medical history of dementia, CVA, recent pneumonia, and urinary incontinence. The patient was admitted to hospital January 05 for UTI and altered mental status. We're consulted January 07 for antibiotics recommendations for bacteremia and UTI. Briefly, the patient is an 82-year-old male with past medical history as stated above. The patient is somewhat of a poor historian due to his dementia so most of the information is obtained from the medical record at there is currently not any family at the bedside. Apparently, the patient was sent to the emergency department from [facility] where he resides with complaints of altered mental status, cough, and fever. According to the medical record, the patient's roommate was diagnosed with the flu last week. Upon arrival, the patient was afebrile and hemodynamically stable. His white blood cell count was normal. Laboratory studies revealed a normal renal function and lactic acid. Urinalysis was obtained via catheterization that was positive for pyuria. Culture grew out pseudomonas aeruginosa that is resistant for quinolones. He had a chest x-ray in the ER showed stable cardiomegaly as well as right basal atelectasis and mild pulmonary vascular congestion, but no acute infiltrate. A CT of the head showed low attenuation of the left frontal lobe could be related to an old infarct or neoplasm. Blood cultures were obtained 2 sets and her +1 out of 2 sets for gram-positive cocci, but the PCR was negative. He did have a flu antigen swab that was negative. The patient was started on IV Rocephin and admitted to the hospital for further evaluation. During my exam today, the patient is resting comfortably in bed. He appears to be somewhat of a poor historian and is unable to tell me about his symptoms prior to admission, but currently he denies any fevers or chills or rigors. He does report that his nose is congested he's been blowing his nose a lot. He reports a productive cough, but is unsure of the color of the sputum. Denies any earache or sore throat. Any chest pain or shortness of breath. Denies any nausea or vomiting. Per the floor staff, the patient did have a loose stool this morning but he did eat all of his breakfast. According to nursing staff, the patient is chronically incontinent, but they Hickman catheter was placed in the emergency department. The patient denies any urinary complaints or abdominal pain. He denies any back pain with pain in his legs or arms. He denies any sores or skin lesions. According to the medical record, the patient lives at a local extended care facility. He denies any tobacco, alcohol, or illicit drug use. He states he is retired from the [employer] CC: Shaylee Godinez, SULEMAN Past Med Surg Social Fam HX - Past Medical History Source: old records reviewed, nursing notes reviewed Medical history: atrial fibrillation, CVA, DVT, other (Dysphagia) Psychiatric history: no psych history - Past Surgical History Surgical History: coronary bypass (CABG) - Social History Smoking Status: Former smoker Smokeless Tobacco Status: No Alcohol use: unknown Drug use: none Occupational status: retired Current living situation: ECF - Family History Mother Living Status: Infectious Disease-CN:Meds Atorvastatin Calcium [Lipitor] 80 mg PO HS 11/22/15 [History] Isosorbide DInitrate [Isosorbide Dinitrate] 20 mg PO TID 11/22/15 [History] Carvedilol [Coreg] 6.25 mg PO BID 11/29/15 [History] Docusate [Colace] 100 mg PO BID 01/05/18 [History] Ketoconazole Shampoo [Nizoral Shampoo] 1 appl TP MOTHSA 01/05/18 [History] LevETIRAcetam [Keppra] 500 mg PO BID 01/05/18 [History] Potassium Chloride [K-Tab ER] 20 meq PO DAILY 01/05/18 [History] Sennosides [Senna] 8.6 mg PO BID 01/05/18 [History] Triamcinolone Acetonide 1 appl TP BID 01/05/18 [History] 3 Allergy/AdvReac Type Severity Reaction Status Date / Time No Known Allergies Allergy Verified 11/07/15 15:30 All systems: reviewed and no additional remarkable complaints except as stated Exam - Constitutional Vitals: Temp Pulse Resp BP Pulse Ox 98.6 F 63 16 131/68 95 01/07/18 07:02 01/07/18 07:02 01/07/18 07:02 01/07/18 07:02 01/07/18 07:02 General appearance: average body habitus, cooperative, no acute distress - Head Head exam: Present: atraumatic, normal inspection, normocephalic - Eye Eye exam: Present: EOMI, normal appearance, PERRL Pupils: Present: normal accommodation Additional comments: No subcojunctival hemorrhage noted. - ENT ENT exam: Present: mucous membranes moist - Neck Neck exam: Present: normal inspection - Respiratory Respiratory exam: Present: rhonchi (Scattered.). Absent: rales, respiratory distress, wheezes - Cardiovascular Cardiovascular exam: Present: irregular rhythm. Absent: tachycardia - GI/Abdominal GI/Abdominal exam: Present: normal bowel sounds, soft. Absent: distended, tenderness Additional comments: Hickman catheter noted to be draining dark yellow urine. - Extremities Exam Extremities exam: Present: normal inspection. Absent: joint swelling, pedal edema, tenderness - Back Exam Back exam: Present: normal inspection. Absent: paraspinal tenderness, vertebral tenderness - Neurological Exam Neurological exam: Present: alert, no focal deficits. Absent: oriented X3 ( Oriented to person only) - Psychiatric Psychiatric exam: Present: normal affect, normal mood - Skin Skin exam: Present: dry, intact, normal color, warm Infectious Disease CN: Results - Labs CBC & Chem 7: 01/07/18 03:22 01/07/18 03:22 Cultures: Cultures 01/05/18 13:32 Blood Culture - Preliminary Peripheral Venipuncture No growth. 01/05/18 14:37 Urine Culture - Final Urine,Catheterized Pseudomonas aeruginosa 01/05/18 13:32 Blood Culture - Preliminary Peripheral Venipuncture Gram Positive Cocci 01/05/18 13:33 Influenza Types A,B Antigen (GAUDENCIO) - Final Nasopharyngeal Serology: Serology 01/05/18 01/05/18 Range/Units 14:37 13:32 Urine Color Yellow (Yellow) Urine Clarity Cloudy A (Clear) Urine pH 6.0 (5.0-8.0) pH Units Ur Specific [place] 1.023 (1.010-1.025) Urine Protein 30 H (Neg-Trace) mg/dL Urine Glucose (UA) Normal (Normal) mg/dL Urine Ketones Negative (Negative) mg/dL Urine Blood Small H (Negative) Urine Nitrite Positive A (Negative) Urine Bilirubin Negative (Negative) Urine Urobilinogen Normal (Normal) mg/dL Ur Leukocyte Esterase Large H (Negative) Urine Microscopic RBC 0-3 (0-3) per hpf Urine Microscopic WBC TNTC H (0-3) per hpf Ur Squamous Epith Cells Few (None-Few) per lpf Urine Bacteria Many H (None-Few) per hpf Hyaline Casts Few (None-Few) per lpf Ur Culture Indicated? YES A (NO) A. baumannii (PCR) Not Detected (Not Detect) Etta albicans (PCR) Not Detected (Not Detect) C. glabrata (PCR) Not Detected (Not Detect) C. krusei (PCR) Not Detected (Not Detect) C. parapsilosis (PCR) Not Detected (Not Detect) C. tropicalis (PCR) Not Detected (Not Detect) Enterobacteriac sp PCR Not Detected (Not Detect) E. cloacae complex PCR Not Detected (Not Detect) Enterococcus sp PCR Not Detected (Not Detect) E. coli (PCR) Not Detected (Not Detect) H. influenzae (PCR) Not Detected (Not Detect) Klebsiella oxytoca PCR Not Detected (Not Detect) Klebsiella pneumoniae Not Detected (Not Detect) List. monocytogenes PCR Not Detected (Not Detect) N. meningitidis (PCR) Not Detected (Not Detect) Proteus species (PCR) Not Detected (Not Detect) Serratia marcescens PCR Not Detected (Not Detect) Staphylococcus sp PCR Not Detected (Not Detect) Staph aureus (PCR) Not Detected (Not Detect) mecA-Methicil Res Gene Not Detected (Not Detect) Streptococcus sp PCR Not Detected (Not Detect) Group A Strep DNA Not Detected (Not Detect) Group B Strep (PCR) Not Detected (Not Detect) Strep pneumoniae (PCR) Not Detected (Not Detect) P. aeruginosa (PCR) Not Detected (Not Detect) Radha/B-Vanco Res Genes Not Detected (Not Detect) KPC (blaKPC) Detect PCR Not Detected (Not Detect) Consult Discharge Plan - Plan Referrals: NONE,PCP [Primary Care Provider] - - Attending Attestation I examined this patient and my medical decision-making was reviewed with the Resident Physician. I agree with the documented findings, disposition and treatment plan as described except to the extent set forth below. This is an addendum to original report dictated by Jessi Espinal CNP. Please refer to [facility] note for full detail. Patient is an 82-year-old gentleman who has dementia and is not a good historian came in to [place] with altered mental status, urinary tract infection and what appears to be cough and exposure to flu. Patient appears comfortable in bed with sitter at bedside feeding him lunch no acute distress does not appear toxic. Labs, imaging, cultures and flu antigen have been noted. Patient also had a blood culture that was +1 out of 2 sets for gram-positive cocci. At this point we will continue cefepime, dose adjust based on creatinine clearance. Also check flu PCR. Repeat cultures. Duration of treatment depends on clinical picture. Monitor labs and for drug toxicity.
[2018-01-07] MEDS ORDERED: Cefepime HCl 2,000 MG in Water for inj. (sterile) 20 ML IVP SCH (16:00)
[2018-01-07] MEDS: Cefepime HCl 2,000 MG in Water for inj. (sterile) 20 ML IVP SCH (16:45)
--- NOTE | 2018-01-07 17:48 | Internal Med Progress Note ---
Date of Encounter: 01/07/18 Time of Encounter: 17:46 - Assessment and plan (1) Bacteremia Current Visit: Yes Status: Acute Assessment and plan: ID consult. And feel the causative organism is unclear Blood Cultures drawn in the ER are +1/2 sets for GPC, PCR is negative so unlikely staph or strep Contaminant versus true infection Await cultures to finalize Repeat blood cultures 2 sets (2) Metabolic encephalopathy Current Visit: Yes Status: Acute Assessment and plan: Resolved, back to baseline Patient found to have UTI and bacteremia, history of dementia Patient is alert and following commands on assessment He knows his name, date of . He is not oriented to time but I feel this is his baseline (3) Dementia Current Visit: Yes Status: Chronic Assessment and plan: diagnosis of dementia Continue home medications Qualifiers: Dementia type: unspecified type Dementia behavioral disturbance: without behavioral disturbance Qualified Code(s): F03.90 - Unspecified dementia without behavioral disturbance (4) UTI (urinary tract infection) Current Visit: Yes Status: Acute Assessment and plan: UTI with Pseudomonas aeruginosa on culture that is resistant to fluoroquinolones. Rocephin DC'd Likely secondary to chronic urinary incontinence. Likely the source of the patient's AMS, which is resolved Freeman discontinued. Cefepime 2 grams IV Q12H. Duration of treatment depends on the clinical picture. Monitor renal function and dose-adjust antibiotics. Qualifiers: Urinary tract infection type: site unspecified Hematuria presence: without hematuria Qualified Code(s): N39.0 - Urinary tract infection, site not specified (5) DVT prophylaxis Current Visit: Yes Status: Acute Assessment and plan: Mechanical SCDs (6) HTN (hypertension) Current Visit: No Status: Chronic Assessment and plan: Continue home meds Blood pressure stable Qualifiers: Hypertension type: essential hypertension Qualified Code(s): I10 - Essential (primary) hypertension (7) Cough Current Visit: Yes Status: Acute Assessment and plan: Chest x-ray shows no acute infiltrate. Flu antigen negative, but the patient does have history of exposure to the flu with cough, fever, and URI symptoms. RIP with nothing detected. Nursing staff reports patient was coughing with his thickened liquids Bedside swallow completed yesterday with dietary recommendations We will check an MBS in light of his past stroke - Subjective Interval history: Patient is lying in bed in no distress, he did answer my questions. He states he is feeling okay. Denies any chest pain or shortness of breath or other complaints. Nursing reported that he was coughing on his thickened liquids - Constitutional Vitals: Temp Pulse Resp BP Pulse Ox 99.3 F 63 16 162/74 96 01/07/18 15:53 01/07/18 15:53 01/07/18 15:53 01/07/18 15:53 01/07/18 15:53 General appearance: Present: cooperative, A&O X 2, pleasant, no acute distress, answers questions appropriately - Head Head exam: Present: atraumatic, normocephalic - Eye Eye exam: Present: PERRL, conjuntiva pink, sclera anicteric Pupils: Present: PERRL - Neck Neck exam general surgery: Present: supple, trachea midline. Absent: lymphadenopathy - Respiratory Respiratory exam: Present: decreased breath sounds, rhonchi. Absent: accessory muscle use, rales, wheezes Additional comments: Moist cough on forced expiration - Cardiovascular Cardiovascular exam: Present: RRR, +S1, +S2. Absent: diastolic murmur, gallop, rubs, systolic murmur - GI/Abdominal GI/Abdominal exam: Present: normal bowel sounds, soft, no peritoneal signs. Absent: distended, tenderness - Extremities Exam Extremities exam: Present: pedal edema, warm, radial pulses palpable and symmetrical. Absent: calf tenderness, cyanotic - Neurological Exam Neurological exam: Present: no focal deficits. Absent: pronater drift, facial droop, speech deficit - Skin Skin exam: Present: dry, intact Internal Medicine: Result - Labs CBC & Chem 7: 01/07/18 03:22 01/07/18 03:22 Labs: Short CBC 01/07/18 Range/Units 03:22 WBC 7.6 (4.3-11.1) K/mcL Hgb 10.1 L (12.9-16.9) g/dL Hct 32.4 L (37.5-50.1) % Plt Count 166 (140-400) K/mcL Neutrophils # 4.6 (1.6-8.9) K/mcL BMP 01/07/18 03:22 Sodium 138 Potassium 4.1 Chloride 105 Carbon Dioxide 29 BUN 21 Creatinine 1.07 Glucose 84 Calcium 8.1 L - ABG Interpretation ABG results: PT/INR, D-dimer PT 12.3 Seconds (9.4-12.1) H 01/05/18 13:32 Consult Discharge Plan - Plan Referrals: NONE,PCP [Primary Care Provider] -
[2018-01-07 18:27] LABS: Adenovirus Not Detected (Not Detect); Bordetella Pertussis Not Detected (Not Detect); Chlamydophila pneumoniae Not Detected (Not Detect); Coronavirus 229E Not Detected (Not Detect); Coronavirus HKU1 Not Detected (Not Detect); Coronavirus NL63 Not Detected (Not Detect); Coronavirus OC43 Not Detected (Not Detect); Human Metapneumovirus Not Detected (Not Detect); Human Rhinovirus/Enterovirus Not Detected (Not Detect); Influenza A Subtype 2009 H1 Not Detected (Not Detect); Influenza A Untypeable Not Detected (Not Detect); Influenza B Not Detected (Not Detect); Mycoplasma pneumoniae Not Detected (Not Detect); Parainfluenza Virus 1 Not Detected (Not Detect); Parainfluenza Virus 2 Not Detected (Not Detect); Parainfluenza Virus 3 Not Detected (Not Detect); Parainfluenza Virus 4 Not Detected (Not Detect); Respiratory Syncytial Virus Not Detected (Not Detect)
[2018-01-07] MEDS: Docusate Oral Soln 100 MG/10 ML UDC PO SCH (20:15)
[2018-01-08] MEDS: Cefepime HCl 2,000 MG in Water for inj. (sterile) 20 ML IVP SCH ×2 (03:49→15:55)
--- NOTE | 2018-01-08 10:55 | Infectious Disease Progress No ---
Date of Encounter: 01/08/18 Time of Encounter: 10:53 - Assessment and Plan (1) Bacteremia Current Visit: Yes Status: Acute Causative organism unclear. Blood cultures drawn in the ER are positive 1/2 sets for GPC. PCR is negative, so unlikely Staph or Strep. Contaminant vs. true infection. Await cultures to finalize. Repeat blood cultures x 2 sets drawn 01/07/18 are pending. (2) UTI (urinary tract infection) Current Visit: Yes Status: Acute Causative organism Pseudomonas aeruginosa, resistant to fluoroquinolones. Likely secondary to chronic urinary incontinence. Likely the source of the patient's AMS, which is improved based on documentation. Continue Cefepime 2 grams IV Q12H. Duration of treatment depends on the clinical picture, but will likely be able to switch to PO fosfomycin on discharge to complete course of treatment. Monitor renal function and dose-adjust antibiotics. Qualifiers: Urinary tract infection type: site unspecified Hematuria presence: without hematuria Qualified Code(s): N39.0 - Urinary tract infection, site not specified (3) Cough Current Visit: Yes Status: Acute Likely viral. Chest x-ray shows no acute infiltrate. Flu antigen negative, but the patient does have history of exposure to the flu with cough, fever, and URI symptoms. RIP negative. Could be secondary to aspiration. (4) Altered mental status Current Visit: Yes Status: Acute Likely secondary to UTI. CT of the head negative for acute abnormality, but did show low attenuation in the left frontal lobe, likely secondary to previous infarct vs. neoplasm. Appears improved based on other provider's documentation. Qualifiers: Altered mental status type: unspecified Qualified Code(s): R41.82 - Altered mental status, unspecified (5) CVA (cerebrovascular accident due to intracerebral hemorrhage) Current Visit: No Status: Chronic Qualifiers: Intracerebral hemorrhage etiology: nontraumatic Cerebral hemorrhage location: unspecified cerebral location Qualified Code(s): I61.9 - Nontraumatic intracerebral hemorrhage, unspecified (6) Atrial fibrillation Current Visit: No Status: Chronic Rate controlled. Management per the primary team. Qualifiers: Atrial fibrillation type: chronic Qualified Code(s): I48.2 - Chronic atrial fibrillation (7) Dementia Current Visit: Yes Status: Chronic Qualifiers: Dementia type: unspecified type Dementia behavioral disturbance: without behavioral disturbance Qualified Code(s): F03.90 - Unspecified dementia without behavioral disturbance (8) Dysphagia Current Visit: No Status: Acute Speech therapy consulted and following. 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 Further management per the primary and speech therapy teams. Qualifiers: Dysphagia type: oral phase Qualified Code(s): R13.11 - Dysphagia, oral phase - Subjective Interval history: Patient seen and examined. No acute events noted overnight. Status post modified barium swallow study this morning. Patient states that overall he feels okay. Denies chest pain, shortness of breath, or cough. Denies nausea, vomiting, or diarrhea. Denies abdominal pain or urinary complaints. Was NPO for breakfast this morning. States he feels hungry. Denies oral thrush or new skin lesions. Infect Dis PN-Objective Data - Labs CBC & Chem 7: 01/07/18 03:22 01/07/18 03:22 Labs: Laboratory Results - last 24 hr 01/07/18 17:35 Chlamy pneumoniae PCR Not Detected Adenovirus (PCR) Not Detected B. pertussis DNA (PCR) Not Detected B.parapertussis DNA PCR Not Detected Coronavirus OC43 (PCR) Not Detected Coronavirus HKU1 (PCR) Not Detected Coronavirus 229E (PCR) Not Detected Coronavirus NL63 (PCR) Not Detected Human Metapneumovir PCR Not Detected Influenza A (H1) PCR Not Detected Influ A (H1N1/09) PCR Not Detected Influenza A (H3) PCR Not Detected Influenza A Untype (PCR) Not Detected Influenza Type B (PCR) Not Detected M.pneumoniae DNA (PCR) Not Detected Parainfluenza 1 (PCR) Not Detected Parainfluenza 2 (PCR) Not Detected Parainfluenza 3 (PCR) Not Detected Parainfluenza 4 (PCR) Not Detected RSV (PCR) Not Detected Entero/Rhino (PCR) Not Detected Cultures: Serology 01/07/18 Range/Units 17:35 Chlamy pneumoniae PCR Not Detected (Not Detect) Adenovirus (PCR) Not Detected (Not Detect) B. pertussis DNA (PCR) Not Detected (Not Detect) B.parapertussis DNA PCR Not Detected (Not Detect) Coronavirus OC43 (PCR) Not Detected (Not Detect) Coronavirus HKU1 (PCR) Not Detected (Not Detect) Coronavirus 229E (PCR) Not Detected (Not Detect) Coronavirus NL63 (PCR) Not Detected (Not Detect) Human Metapneumovir PCR Not Detected (Not Detect) Influenza A (H1) PCR Not Detected (Not Detect) Influ A (H1N1/09) PCR Not Detected (Not Detect) Influenza A (H3) PCR Not Detected (Not Detect) Influenza A Untype (PCR) Not Detected (Not Detect) Influenza Type B (PCR) Not Detected (Not Detect) M.pneumoniae DNA (PCR) Not Detected (Not Detect) Parainfluenza 1 (PCR) Not Detected (Not Detect) Parainfluenza 2 (PCR) Not Detected (Not Detect) Parainfluenza 3 (PCR) Not Detected (Not Detect) Parainfluenza 4 (PCR) Not Detected (Not Detect) RSV (PCR) Not Detected (Not Detect) Entero/Rhino (PCR) Not Detected (Not Detect) - Impressions Impressions Barium Swallow X-Ray 01/08/18 08:00 IMPRESSION: [id number] achalasia without evidence of obstruction. D/ / 01/08/2018 09:40:59 Vicente Ibrahim MD / [facility] Interpreting Provider: Vicente Ibrahim MD Exam - Constitutional Vitals: Temp Pulse Resp BP Pulse Ox 97.6 F 55 16 171/67 95 01/08/18 07:49 01/08/18 07:49 01/08/18 07:49 01/08/18 07:49 01/08/18 07:49 General appearance: average body habitus, cooperative, no acute distress - Head Head exam: Present: atraumatic, normal inspection, normocephalic - Eye Eye exam: Present: EOMI, normal appearance, PERRL Pupils: Present: normal accommodation Additional comments: No subcojunctival hemorrhage noted. - ENT ENT exam: Present: mucous membranes moist Additional comments: Liquid barium noted on the lips and tongue. - Neck Neck exam: Present: normal inspection - Respiratory Respiratory exam: Present: CTAB. Absent: rales, respiratory distress, rhonchi, wheezes - Cardiovascular Cardiovascular exam: Present: irregular rhythm. Absent: tachycardia - GI/Abdominal GI/Abdominal exam: Present: normal bowel sounds, soft. Absent: distended, tenderness - Extremities Exam Extremities exam: Present: normal inspection. Absent: joint swelling, pedal edema, tenderness - Neurological Exam Neurological exam: Present: alert, no focal deficits. Absent: oriented X3 ( Oriented to person only.) - Psychiatric Psychiatric exam: Present: normal affect, normal mood - Skin Skin exam: Present: dry, intact, normal color, warm Additional comments: No endocarditis stigmata noted. - VTE Documentation of Mechanical Device: Intermittent pneumatic compression device Consult Discharge Plan - Plan Referrals: NONE,PCP [Primary Care Provider] - - Attending Attestation I examined this patient and my medical decision-making was reviewed with the Resident Physician. I agree with the documented findings, disposition and treatment plan as described except to the extent set forth below.
[2018-01-08] MEDS: Docusate Oral Soln 100 MG/10 ML UDC PO SCH ×2 (11:30→20:31)
[2018-01-08] MEDS: Potassium Chloride Elixir 20 MEQ/15 ML UDC PO SCH (11:30)
[2018-01-08] MEDS: Sennosides 8.6 MG TABLET PO SCH ×2 (11:31→20:31)
--- NOTE | 2018-01-08 15:11 | Internal Med Progress Note ---
Date of Encounter: 01/08/18 Time of Encounter: 15:09 - Assessment and plan (1) Bacteremia Current Visit: Yes Status: Acute Assessment and plan: ID consult. Feel the causative organism is unclear Blood Cultures drawn in the ER are +1/2 sets for GPC, PCR is negative so unlikely staph or strep Contaminant versus true infection Await cultures drawn 01/07/18 to finalize Repeat blood cultures 2 sets (2) Metabolic encephalopathy Current Visit: Yes Status: Acute (3) Dementia Current Visit: Yes Status: Chronic Assessment and plan: diagnosis dementia Continue home medications Qualifiers: Dementia type: unspecified type Dementia behavioral disturbance: without behavioral disturbance Qualified Code(s): F03.90 - Unspecified dementia without behavioral disturbance (4) UTI (urinary tract infection) Current Visit: Yes Status: Acute Assessment and plan: UTI with Pseudomonas aeruginosa on culture that is resistant to fluoroquinolones. Likely secondary to chronic urinary incontinence. Likely the source of the patient's AMS, which is resolved Freeman discontinued. Cefepime 2 grams IV Q12H. Duration of treatment depends on the clinical picture. Monitor renal function and dose-adjust antibiotics. Qualifiers: Urinary tract infection type: site unspecified Hematuria presence: without hematuria Qualified Code(s): N39.0 - Urinary tract infection, site not specified (5) DVT prophylaxis Current Visit: Yes Status: Acute Assessment and plan: Mechanical with SCDs (6) HTN (hypertension) Current Visit: No Status: Chronic Assessment and plan: Continue home meds Blood pressure reviewed/ stable Qualifiers: Hypertension type: essential hypertension Qualified Code(s): I10 - Essential (primary) hypertension (7) Cough Current Visit: Yes Status: Acute Assessment and plan: Chest x-ray shows no acute infiltrate. Flu antigen negative, but the patient does have history of exposure to the flu with cough, fever, and URI symptoms. RIP with nothing detected. Nursing staff reports patient was coughing with his thickened liquids They held his liquids on tray and he was much better Bedside swallow completed yesterday with dietary recommendations MBS obtaned, [id number] achalasia without evidence of obstruction per report continue diet as per specch - Subjective Interval history: Patient is lying in bed in no distress, he did answer my questions. He states he is feeling okay. Denies any chest pain or shortness of breath or other complaints. - Constitutional Vitals: Temp Pulse Resp BP Pulse Ox 97.5 F L 62 20 144/72 97 01/08/18 12:00 01/08/18 12:00 01/08/18 12:00 01/08/18 12:00 01/08/18 12:00 General appearance: Present: cooperative, A&O X 2, pleasant, no acute distress, answers questions appropriately - Head Head exam: Present: atraumatic, normocephalic - Eye Eye exam: Present: PERRL, conjuntiva pink, sclera anicteric Pupils: Present: PERRL - Neck Neck exam general surgery: Present: supple, trachea midline. Absent: lymphadenopathy - Respiratory Respiratory exam: Present: decreased breath sounds. Absent: accessory muscle use, rales, rhonchi, wheezes Additional comments: Moist cough on forced expiration but lung sounds clear no sensory muscle use - Cardiovascular Cardiovascular exam: Present: RRR, +S1, +S2. Absent: diastolic murmur, gallop, rubs, systolic murmur Additional comments: Positive pedal edema - GI/Abdominal GI/Abdominal exam: Present: normal bowel sounds, soft, no peritoneal signs. Absent: distended, tenderness - Extremities Exam Extremities exam: Present: pedal edema, warm, radial pulses palpable and symmetrical. Absent: calf tenderness, cyanotic Additional comments: Right heel is red and mushy, heel protectors bilaterally - Neurological Exam Neurological exam: Present: CN II-XII intact, oriented X3, no focal deficits. Absent: pronater drift, facial droop, speech deficit - Skin Skin exam: Present: dry, intact Internal Medicine: Result - Labs CBC & Chem 7: 01/07/18 03:22 01/07/18 03:22 - ABG Interpretation ABG results: PT/INR, D-dimer PT 12.3 Seconds (9.4-12.1) H 01/05/18 13:32 - Impressions Impressions Barium Swallow X-Ray 01/08/18 08:00 IMPRESSION: [id number] achalasia without evidence of obstruction. D/ / 01/08/2018 09:40:59 Vicente Ibrahim MD / [email or web address] Interpreting Provider: Vicente Ibrahim MD - VTE Documentation of Mechanical Device: Intermittent pneumatic compression device Consult Discharge Plan - Plan Referrals: NONE,PCP [Primary Care Provider] -
[2018-01-09] MEDS: Cefepime HCl 2,000 MG in Water for inj. (sterile) 20 ML IVP SCH (03:49)
[2018-01-09] MEDS: Docusate Oral Soln 100 MG/10 ML UDC PO SCH (09:22)
[2018-01-09] MEDS: Potassium Chloride Elixir 20 MEQ/15 ML UDC PO SCH (09:22)
[2018-01-09] MEDS: Sennosides 8.6 MG TABLET PO SCH (09:22)
--- NOTE | 2018-01-09 10:38 | Discharge Summary ---
Date of Encounter: 01/09/18 Time of Encounter: 10:36 - Discharge Diagnosis (1) Bacteremia Priority: Primary Status: Acute Comments: ID consult. Feel the causative organism is unclear Blood Cultures drawn in the ER are +1/2 sets for GPC, PCR is negative so unlikely staph or strep Contaminant versus true infection No growth on repeat blood cultures drawn 01/07/18 Spoke with infectious disease service and will be discharged on fosfomycin 3 g for 2 doses 2 days apart as he has been on IV cefepime (2) Metabolic encephalopathy Priority: Primary Status: Acute Comments: Resolved and likely secondary to UTI and bacteremia patient does have underlying dementia (3) Dementia Priority: Secondary Status: Chronic Comments: Dementia is at baseline, continue previous management Qualifiers: Dementia type: unspecified type Dementia behavioral disturbance: without behavioral disturbance Qualified Code(s): F03.90 - Unspecified dementia without behavioral disturbance (4) UTI (urinary tract infection) Priority: Primary Status: Acute Comments: UTI with Pseudomonas aeruginosa on culture that is resistant to fluoroquinolones. Likely secondary to chronic urinary incontinence. Likely the source of the patient's AMS, which is resolved Freeman discontinued. Cefepime 2 grams IV Q12H as well as sweats to fosfomycin 3 g 2 doses 2 days apart on discharge. Qualifiers: Urinary tract infection type: site unspecified Hematuria presence: without hematuria Qualified Code(s): N39.0 - Urinary tract infection, site not specified (5) HTN (hypertension) Priority: Secondary Status: Chronic Comments: Blood pressure has been stable Continue home medications Qualifiers: Hypertension type: essential hypertension Qualified Code(s): I10 - Essential (primary) hypertension (6) Cough Priority: Primary Status: Acute Comments: Improved on thickened liquids and swallow precautions - Discharge Medications Home Medications: Atorvastatin Calcium [Lipitor] 80 mg PO HS 11/22/15 [History] Isosorbide DInitrate [Isosorbide Dinitrate] 20 mg PO TID 11/22/15 [History] Carvedilol [Coreg] 6.25 mg PO BID 11/29/15 [History] Docusate [Colace] 100 mg PO BID 01/05/18 [History] Ketoconazole Shampoo [Nizoral Shampoo] 1 appl TP MOTHSA 01/05/18 [History] LevETIRAcetam [Keppra] 500 mg PO BID 01/05/18 [History] Potassium Chloride [K-Tab ER] 20 meq PO DAILY 01/05/18 [History] Sennosides [Senna] 8.6 mg PO BID 01/05/18 [History] Triamcinolone Acetonide 1 appl TP BID 01/05/18 [History] Allergies/Adverse Reactions: 3 Allergy/AdvReac Type Severity Reaction Status Date / Time No Known Allergies Allergy Verified 11/07/15 15:30 Date of admission: 01/05/18 18:51 Primary care physician: PCP NONE Consults: 01/06/18 08:33 Consult to Wound Care [CONS] Routine Reason for Consult: Left heal pressure ulcer Call Completed: No 01/07/18 08:05 Consult to Infectious Diseases [CONS] Routine Consulting Provider: Infectious Disease Dora Reason for Consult: bacteremia Time Notified: 08:06 Call Completed: Yes 01/08/18 07:47 Consult to Occupational Therapy [CONS] Routine Comment: Evaluate, develop and implement POC Reason for Consult: deconditioning Consult to Physical Therapy [CONS] Routine Comment: Evaluate, develop and implement POC Reason for Consult: deconditioning Discharging clinician: Kelley Hernandez Anticipated date of discharge: 01/09/18 - Patient Status Disposition: Transfer SNF Condition: Fair Functional capacity at discharge: wheelchair bound Overall status at discharge: patient is back to baseline - Discharge Instructions Follow Up With: NONE,PCP [Primary Care Provider] - - Diet and Activity Activity: resume usual activities as tolerated Diet: advance to your usual diet, other (Honey thickened liquid diet with puree food) Interval History: patient is resting quietly in bed. He states he feels very good today. He looks very builder beam. He states he feels good with no complaints. He is not coughing when drinking his thickened liquids this morning with head of bed up. He denies chest pain, shortness of breath, fever, chills, changes in bowel or bladder. Discussed his plan of care with infectious disease and orders have been written for fosfomycin by mouth for 2 doses 2 days apart. He will return to the [facility] course: Mr. Villarreal is a 82 year old male admitted from the [facility] and he will return there. He had bacteremia and UTI. Also had cough and moist lungs with improvement after speech swallow eval and placed on appropriate thickened liquids. He will require eating precautions and swallow precautions. Infectious disease is following. Repeat blood cultures with no growth. He will return to the facility on by mouth fosfomycin for 2 doses daily support as he has been treated with cefepime here. He continues with chronic pedal edema. Heel protectors in place which should be continued. Please refer to the assessment and plan for further details. - Time Spent with Patient Total time spent providing and/or coordinating discharge services: Less than 30 minutes - Constitutional Vitals: Temp Pulse Resp BP Pulse Ox 97.8 F 60 15 149/71 92 01/09/18 06:34 01/09/18 06:34 01/09/18 06:34 01/09/18 06:34 01/09/18 06:34 General appearance: Present: cooperative, A&O X 2, pleasant, no acute distress - Head Head exam: Present: atraumatic, normocephalic - Eye Eye exam: Present: PERRL, conjuntiva pink, sclera anicteric Pupils: Present: PERRL - Neck Neck exam general surgery: Present: supple, trachea midline. Absent: lymphadenopathy - Respiratory Respiratory exam: Present: CTAB. Absent: accessory muscle use, rales, respiratory distress, rhonchi, wheezes - Cardiovascular Cardiovascular exam: Present: RRR, +S1, +S2. Absent: diastolic murmur, gallop, rubs, systolic murmur, tachycardia - GI/Abdominal GI/Abdominal exam: Present: normal bowel sounds, soft, no peritoneal signs. Absent: distended, tenderness - Extremities Exam Extremities exam: Present: pedal edema, warm, radial pulses palpable and symmetrical. Absent: calf tenderness, cyanotic Additional comments: Bilateral heel protectors which should be continued - Neurological Exam Neurological exam: Present: alert, CN II-XII intact, no focal deficits. Absent : pronater drift, facial droop, speech deficit Additional comments: Follows commands and interacting appropriately this morning - Skin Skin exam: Present: dry, intact, warm Additional comments: Heel is red and mushy with bilateral heel protectors on /no open areas - VTE Documentation of Mechanical Device: Intermittent pneumatic compression device
[2018-01-09 10:56] VITALS: BP 126/71
--- NOTE | 2018-01-09 11:02 | Physician Discharge Referral ---
ExtendedCare Referral Info Transfer To: [facility] Provider in Charge: jose rocha Institutional Level of Care: Skilled - Diagnosis (1) Bacteremia Priority: Primary Status: Acute (2) Metabolic encephalopathy Priority: Primary Status: Acute (3) Dementia Priority: Secondary Status: Chronic (4) UTI (urinary tract infection) Priority: Primary Status: Acute (5) HTN (hypertension) Priority: Secondary Status: Chronic (6) Cough Priority: Primary Status: Acute - Transfer Medications Home Medications: Atorvastatin Calcium [Lipitor] 80 mg PO HS 11/22/15 [History] Isosorbide DInitrate [Isosorbide Dinitrate] 20 mg PO TID 11/22/15 [History] Carvedilol [Coreg] 6.25 mg PO BID 11/29/15 [History] Docusate [Colace] 100 mg PO BID 01/05/18 [History] Ketoconazole Shampoo [Nizoral Shampoo] 1 appl TP MOTHSA 01/05/18 [History] LevETIRAcetam [Keppra] 500 mg PO BID 01/05/18 [History] Potassium Chloride [K-Tab ER] 20 meq PO DAILY 01/05/18 [History] Sennosides [Senna] 8.6 mg PO BID 01/05/18 [History] Triamcinolone Acetonide 1 appl TP BID 01/05/18 [History] Allergies/Adverse Reactions: 3 Allergy/AdvReac Type Severity Reaction Status Date / Time No Known Allergies Allergy Verified 11/07/15 15:30 - Respiratory Orders Smoking Cessation: Smoking cessation has been advised. For more information, call the [place] Tobacco Quit Line at 0-068-TOZM-NOW. - Ancillary Orders May use pressure relief devices daily prn - Advance Directives Living Will: Yes Power of Clinical Informatics Specialist: Yes Code Status: DNR-Arrest/Don't Intubate - Mobility Orders Chair - Treatments Skin tear care topically daily PRN per policy, May check for fecal impaction rectally daily PRN - Diet Orders Pureed (Honey thickened liquids) CERTIFICATION: I certify that the transfer of the above named patient to an Extended Care Facility is necessary for the continuing treatment of the diagnosis listed. The above information is true and accurate reflection of patient's current condition. Confidential - Redisclosure prohibited without a patient's written consent.
--- NOTE | 2018-01-09 14:14 | Infectious Disease Progress No ---
Date of Encounter: 01/09/18 Time of Encounter: 14:12 - Assessment and Plan (1) Bacteremia Status: Acute Causative organism Micrococcus. Blood cultures drawn in the ER are positive 1/2 sets. Likely a contaminant. Repeat blood cultures x 2 sets drawn 01/07/18 are NGTD. (2) UTI (urinary tract infection) Status: Acute Causative organism Pseudomonas aeruginosa, resistant to fluoroquinolones. Likely secondary to chronic urinary incontinence. Likely the source of the patient's AMS, which is improved based on documentation. Continue Cefepime 2 grams IV Q12H. Duration of treatment depends on the clinical picture, but will likely be able to switch to PO fosfomycin on discharge to complete course of treatment. Monitor renal function and dose-adjust antibiotics. Qualifiers: Urinary tract infection type: site unspecified Hematuria presence: without hematuria Qualified Code(s): N39.0 - Urinary tract infection, site not specified (3) Cough Status: Acute Likely viral. Chest x-ray shows no acute infiltrate. Flu antigen negative, but the patient does have history of exposure to the flu with cough, fever, and URI symptoms. RIP negative. Could be secondary to aspiration. (4) Altered mental status Status: Acute Likely secondary to UTI. CT of the head negative for acute abnormality, but did show low attenuation in the left frontal lobe, likely secondary to previous infarct vs. neoplasm. Appears improved based on other provider's documentation. Qualifiers: Altered mental status type: unspecified Qualified Code(s): R41.82 - Altered mental status, unspecified (5) CVA (cerebrovascular accident due to intracerebral hemorrhage) Status: Chronic Qualifiers: Intracerebral hemorrhage etiology: nontraumatic Cerebral hemorrhage location: unspecified cerebral location Qualified Code(s): I61.9 - Nontraumatic intracerebral hemorrhage, unspecified (6) Atrial fibrillation Status: Chronic Rate controlled. Management per the primary team. Qualifiers: Atrial fibrillation type: chronic Qualified Code(s): I48.2 - Chronic atrial fibrillation (7) Dementia Status: Chronic Qualifiers: Dementia type: unspecified type Dementia behavioral disturbance: without behavioral disturbance Qualified Code(s): F03.90 - Unspecified dementia without behavioral disturbance (8) Dysphagia Status: Acute Speech therapy consulted and following. 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 Further management per the primary and speech therapy teams. Qualifiers: Dysphagia type: oral phase Qualified Code(s): R13.11 - Dysphagia, oral phase - Subjective Interval history: Patient seen and examined. No acute events noted overnight. Patient states that overall he feels okay. Denies chest pain, shortness of breath, or cough. Denies nausea, vomiting, or diarrhea. Denies abdominal pain or urinary complaints. Denies oral thrush or new skin lesions. Infect Dis PN-Objective Data - Labs CBC & Chem 7: 01/07/18 03:22 01/07/18 03:22 Cultures: Cultures 01/07/18 11:55 Blood Culture - Preliminary Peripheral Venipuncture No growth. 01/07/18 12:01 Blood Culture - Preliminary Peripheral Venipuncture No growth. Serology 01/07/18 Range/Units 17:35 Chlamy pneumoniae PCR Not Detected (Not Detect) Adenovirus (PCR) Not Detected (Not Detect) B. pertussis DNA (PCR) Not Detected (Not Detect) B.parapertussis DNA PCR Not Detected (Not Detect) Coronavirus OC43 (PCR) Not Detected (Not Detect) Coronavirus HKU1 (PCR) Not Detected (Not Detect) Coronavirus 229E (PCR) Not Detected (Not Detect) Coronavirus NL63 (PCR) Not Detected (Not Detect) Human Metapneumovir PCR Not Detected (Not Detect) Influenza A (H1) PCR Not Detected (Not Detect) Influ A (H1N1/09) PCR Not Detected (Not Detect) Influenza A (H3) PCR Not Detected (Not Detect) Influenza A Untype (PCR) Not Detected (Not Detect) Influenza Type B (PCR) Not Detected (Not Detect) M.pneumoniae DNA (PCR) Not Detected (Not Detect) Parainfluenza 1 (PCR) Not Detected (Not Detect) Parainfluenza 2 (PCR) Not Detected (Not Detect) Parainfluenza 3 (PCR) Not Detected (Not Detect) Parainfluenza 4 (PCR) Not Detected (Not Detect) RSV (PCR) Not Detected (Not Detect) Entero/Rhino (PCR) Not Detected (Not Detect) - Impressions Impressions Barium Swallow X-Ray 01/08/18 08:00 IMPRESSION: [id number] achalasia without evidence of obstruction. D/ / 01/08/2018 09:40:59 Vicente Ibrahim MD / [email or web address] Interpreting Provider: Vicente Ibrahim MD Exam - Constitutional Vitals: Temp Pulse Resp BP Pulse Ox 97.8 F 72 16 126/71 92 01/09/18 10:55 01/09/18 10:55 01/09/18 10:55 01/09/18 10:55 01/09/18 10:55 General appearance: average body habitus, cooperative, no acute distress - Head Head exam: Present: atraumatic, normal inspection, normocephalic - Eye Eye exam: Present: EOMI, normal appearance, PERRL Pupils: Present: normal accommodation - ENT ENT exam: Present: mucous membranes moist - Neck Neck exam: Present: normal inspection - Respiratory Respiratory exam: Present: CTAB. Absent: rales, respiratory distress, rhonchi, wheezes - Cardiovascular Cardiovascular exam: Present: irregular rhythm. Absent: tachycardia - GI/Abdominal GI/Abdominal exam: Present: normal bowel sounds, soft. Absent: distended, tenderness - Extremities Exam Extremities exam: Present: normal inspection. Absent: joint swelling, pedal edema, tenderness - Neurological Exam Neurological exam: Present: alert, no focal deficits. Absent: oriented X3 ( Oriented to person only.) - Psychiatric Psychiatric exam: Present: normal affect, normal mood - Skin Skin exam: Present: dry, intact, normal color, warm - VTE Documentation of Mechanical Device: Intermittent pneumatic compression device Consult Discharge Plan - Plan Referrals: NONE,PCP [Primary Care Provider] - - Attending Attestation I examined this patient and my medical decision-making was reviewed with the Resident Physician. I agree with the documented findings, disposition and treatment plan as described except to the extent set forth below.
== END 2018-01-09 13:25 ==
LOC: EMEROO 13:00 → 3BNU 13:00
PROVIDERS: ADMIT Registered Nurse; ATTEND Registered Nurse